=== PATIENT | female | born 2000 | race Caucasian/White ===

== ENCOUNTER 2022-03-22 16:48 | Outpatient (CLI) | payer OTHER | END 2022-03-22 16:49 | disposition home or self-care (01) | LOC: CSHLAB 16:48 | PROVIDERS: ATTEND Family Medicine | DX: Z01.812 Encounter for preprocedural laboratory examination (principal); Z20.822 Contact with and (suspected) exposure to COVID-19 | CPT/HCPCS: 36415; 85014; 85018; 85049; 86780; 86850; 86900; 86901; 87340; U0002 ==